=== PATIENT | female | born 1965 | race African-American/Black ===

== ENCOUNTER 2019-05-13 15:35 | Emergency (ER) | payer MEDICARE, OTHER ==
--- NOTE | 2019-05-13 16:59 | RAD ---
EXAM DESCRIPTION: Chest, x-ray 2 Views CLINICAL HISTORY: vomiting with chest pain COMPARISON: None FINDINGS: Cardiac silhouette is within normal limits. Bibasilar parenchymal opacities could be secondary to atelectasis, infectious process cannot be excluded. Recommend follow-up. There is no acute osseous process visualized. Apices are obscured by superimposed patient's mandible. IMPRESSION: Bibasilar parenchymal opacities could be secondary to atelectasis, infectious process cannot be excluded. Recommend follow-up. Electronically signed by: Rubén Small MD 05/13/2019 4:58 PM CDT
--- NOTE | 2019-05-13 17:00 | RAD ---
EXAM: XR Abdomen, 2 Views CLINICAL HISTORY: The patient is 53 years old and is Female; vomiting with chest pain TECHNIQUE: Frontal view of the abdomen/pelvis with upright view of the abdomen. COMPARISON: No relevant prior studies available. FINDINGS: LOWER THORAX: Mild bibasilar opacities. INTRAPERITONEAL SPACE: No obvious free air. GASTROINTESTINAL TRACT: No significant bowel dilatation visualized. No obvious obstruction. ORGANS: Surgical clips visualized projecting over the right upper quadrant, likely related to prior cholecystectomy. BONES/JOINTS: No acute osseous findings. IMPRESSION: No acute findings visualized in the abdomen. Electronically signed by: Emily Christina MD 05/13/2019 4:58 PM CDT
[2019-05-13] MEDS: MORPHINE SULFATE INJ 10 MG/ML VIAL IV ONE (18:30)
--- NOTE | 2019-05-13 20:14 | ED.PDOC ---
History of Present Illness - General Chief Complaint: Cardiovascular Problem Stated Complaint: chest pain radiating to left jaw, SOB Time Seen by Provider: 05/13/19 15:37 Source: patient Exam Limitations: no limitations - History of Present Illness Initial Comments: the patient is a 53-year-old female presenting to the emergency room secondary to chest pain starting earlier this morning. The patient reports that she does have a cardiac history but is never had a heart attack and does not have any stents. She reports that she does have a prescription for nitroglycerin and took some nitroglycerin. This did not seem to help. She reports that the episode was started by actually 2 episodes of vomiting. She subsequently had substernal chest discomfort since that time. She is not nauseated now. No fevers. No syncope or near syncope. No palpitations. Timing/Duration: other - about 7 hours prior to arrival Severity: mild Worsening Factors: nothing Associated Symptoms: chest pain, nausea/vomiting Allergies/Adverse Reactions: Allergies Amoxicillin Allergy (Verified 05/13/19 15:56) Fentanyl and Related Allergy (Verified 05/13/19 15:56) Hydrocodone Allergy (Verified 05/13/19 15:56) Ibuprofen Allergy (Verified 05/13/19 15:56) Ketorolac Tromethamine [From Toradol] Allergy (Verified 05/13/19 15:56) Naproxen [From Naprosyn] Allergy (Verified 05/13/19 15:56) Penicillins Allergy (Verified 05/13/19 15:56) Tramadol Allergy (Verified 05/13/19 15:56) Home Medications: Ambulatory Orders Lisinopril & Hydrochlorothiazi [Zestoretic 20-12.5 mg] 1 tab PO DAILY 05/13/19 Nitroglycerin [Nitrostat] 0.4 mg SL PRN PRN 05/13/19 Omeprazole 40 mg PO DAILY #14 cap 05/13/19 Ondansetron Odt [Zofran ODT] 4 mg PO Q8HR PRN #5 tab 05/13/19 Sucralfate Tab [Carafate Tab] 1 gm PO QID #60 tab 05/13/19 Review of Systems - Review of Systems Constitutional: States: no symptoms reported EENTM: States: no symptoms reported Respiratory: States: no symptoms reported Cardiology: States: chest pain Gastrointestinal/Abdominal: States: no symptoms reported Genitourinary: States: no symptoms reported Musculoskeletal: States: no symptoms reported Skin: States: no symptoms reported Neurological: States: no symptoms reported Endocrine: States: no symptoms reported All other Systems: No Change from Baseline Past Medical History (General) - Patient Medical History Hx Stroke: No Hx Asthma: Yes Hx of COPD: No Hx Cardiac Disorders: Yes Hx Hypertension: Yes Hx Diabetes: No Hx Gastroesophageal Reflux: No Hx Renal Disease: No Hx Cancer: No Surgical History: cholecystectomy - Vaccination History Hx Tetanus, Diphtheria Vaccination: Yes Hx Influenza Vaccination: Yes - Social History Hx Tobacco Use: Yes Hx Alcohol Use: No Hx Substance Use: No Hx Substance Use Treatment: No Hx Depression: No - Female History Patient is a Female of Child Bearing Age (10 -59 yrs old): Yes Patient : Yes - Menopause Family Medical History - Family History Mother Living Status: Hx Family Hypertension: Yes Hx Cardiac Disease: Yes Hx Family Diabetes: Yes Physical Exam - Physical Exam General Appearance: Alert, Comfortable, No apparent distress Eye Exam: bilateral normal Ears, Nose, Throat: hearing grossly normal, normal ENT inspection Neck: full range of motion, supple Respiratory: lungs clear, normal breath sounds, no respiratory distress, no accessory muscle use Cardiovascular/Chest: normal peripheral pulses, regular rate, rhythm, no edema Peripheral Pulses: radial,right: 2+, radial,left: 2+ Gastrointestinal/Abdominal: non tender, soft Rectal Exam: deferred Back Exam: no CVA tenderness, no vertebral tenderness Extremity: non-tender, normal inspection, no pedal edema, normal capillary refill Neurologic: enrobing machine corder II-XII nml as tested, alert, normal mood/affect, oriented x 3 Skin Exam: normal color Comments: Vital Signs - 24 hr 05/13/19 05/13/19 15:35 15:45 Temperature 97.7 F Pulse Rate [ 93 H 93 H Monitor] Respiratory 18 18 Rate Blood Pressure 122/65 [L brachial] O2 Sat by Pulse 100 Oximetry Progress - Progress Progress: 05/13/19 20:14 the patient's 53-year-old Afghan female resented to the emergency room secondary to chest pain that occurred after vomiting. 2 sets of cardiac enzymes are negative, EKG and x-ray are reassuring. The patient is going to be treated for esophagitis with Carafate and omeprazole and she will also be written for some Zofran for as needed use for any nausea or vomiting. She needs to maintain a bland diet and keep herself well hydrated. ER warnings were given. She does need to obtain a primary care doctor. - Results/Orders Results/Orders: Laboratory Tests 05/13/19 05/13/19 05/13/19 16:10 16:10 16:10 WBC 8.1 RBC 4.65 Hgb 11.9 L Hct 36.3 MCV 78.2 L MCH 25.5 L MCHC 32.7 L RDW 15.0 H Plt Count 251 MPV 8.5 Absolute Neuts (auto) 4.30 Absolute Lymphs (auto) 3.00 Absolute Monos (auto) 0.50 Absolute Eos (auto) 0.20 Absolute Basos (auto) 0.10 Neutrophils % 53.0 Lymphocytes % 37.2 Monocytes % 6.2 Eosinophils % 2.7 Basophils % 0.9 PT 9.9 INR 0.99 PTT (SP) 26.5 Sodium 140 Potassium 3.5 L Chloride 105 Carbon Dioxide 22 Anion Gap 16.5 BUN 16 Creatinine 1.08 BUN/Creatinine Ratio 14.8 Random Glucose 114 H Serum Osmolality 281.4 Calcium 9.7 Magnesium Total Bilirubin 0.3 AST 18 ALT 18 Alkaline Phosphatase 91 Creatine Kinase 78 CK-MB (CK-2) 0.7 CK-MB (CK-2) % Not Reportable Troponin I < 0.02 B-Natriuretic Peptide 87.3 Serum Total Protein 7.4 Albumin 3.8 Globulin 3.6 H Albumin/Globulin Ratio 1.1 Amylase 45 Lipase TSH Serum HCG, Qual Urine Color Urine Appearance Urine pH Ur Specific Mylo Urine Protein Urine Glucose (UA) Urine Ketones Urine Blood Urine Nitrite Urine Bilirubin Urine Urobilinogen Ur Leukocyte Esterase Urine RBC Urine WBC Ur Epithelial Cells Amorphous Sediment Urine Bacteria 05/13/19 05/13/19 05/13/19 16:10 16:30 17:09 WBC RBC Hgb Hct MCV MCH MCHC RDW Plt Count MPV Absolute Neuts (auto) Absolute Lymphs (auto) Absolute Monos (auto) Absolute Eos (auto) Absolute Basos (auto) Neutrophils % Lymphocytes % Monocytes % Eosinophils % Basophils % PT INR PTT (SP) Sodium Potassium Chloride Carbon Dioxide Anion Gap BUN Creatinine BUN/Creatinine Ratio Random Glucose Serum Osmolality Calcium Magnesium 2.0 Total Bilirubin AST ALT Alkaline Phosphatase Creatine Kinase CK-MB (CK-2) CK-MB (CK-2) % Troponin I B-Natriuretic Peptide Serum Total Protein Albumin Globulin Albumin/Globulin Ratio Amylase Lipase 34 TSH 0.16 L Serum HCG, Qual Negative Urine Color Yellow Urine Appearance Clear Urine pH 7.0 Ur Specific Mylo 1.020 Urine Protein Negative Urine Glucose (UA) Negative Urine Ketones Negative Urine Blood Negative Urine Nitrite Negative Urine Bilirubin Negative Urine Urobilinogen 0.2 Ur Leukocyte Esterase Negative Urine RBC 0-1 Urine WBC 0-1 Ur Epithelial Cells 5-10 Amorphous Sediment 1+ Urine Bacteria Rare 05/13/19 19:30 WBC RBC Hgb Hct MCV MCH MCHC RDW Plt Count MPV Absolute Neuts (auto) Absolute Lymphs (auto) Absolute Monos (auto) Absolute Eos (auto) Absolute Basos (auto) Neutrophils % Lymphocytes % Monocytes % Eosinophils % Basophils % PT INR PTT (SP) Sodium Potassium Chloride Carbon Dioxide Anion Gap BUN Creatinine BUN/Creatinine Ratio Random Glucose Serum Osmolality Calcium Magnesium Total Bilirubin AST ALT Alkaline Phosphatase Creatine Kinase 75 CK-MB (CK-2) 0.6 CK-MB (CK-2) % Not Reportable Troponin I < 0.02 B-Natriuretic Peptide Serum Total Protein Albumin Globulin Albumin/Globulin Ratio Amylase Lipase TSH Serum HCG, Qual Urine Color Urine Appearance Urine pH Ur Specific Mylo Urine Protein Urine Glucose (UA) Urine Ketones Urine Blood Urine Nitrite Urine Bilirubin Urine Urobilinogen Ur Leukocyte Esterase Urine RBC Urine WBC Ur Epithelial Cells Amorphous Sediment Urine Bacteria EKG shows normal sinus rhythm at [address] bpm[address] Normal axis. No ST segment or T-wave changes indicative of acute ischemia. She does have poor R-wave progression. No previous EKGs to compare to. Borderline QT interval. chest x-ray is most consistent with bibasilar atelectasis. Departure - Departure Clinical Impression: Esophagitis Disposition: Discharge to Home or Self Care Condition: Fair Departure Forms: ED Discharge - Pt. Copy, Patient Portal Self Enrollment Instructions: Acid Reflux (Gastroesophageal Reflux Disease), Adult (DC) Diet: bland diet Activity: increase activity as tolerated Referrals: UNKNOWN,PHYSICIAN [Primary Care Provider] - 1-5 Days Prescriptions: Ondansetron Odt [Zofran ODT] 4 mg PO Q8HR PRN #5 tab PRN Reason: Nausea--Moderate Omeprazole 40 mg PO DAILY #14 cap Sucralfate Tab [Carafate Tab] 1 gm PO QID #60 tab Home Medications: Ambulatory Orders Lisinopril & Hydrochlorothiazi [Zestoretic 20-12.5 mg] 1 tab PO DAILY 05/13/19 Nitroglycerin [Nitrostat] 0.4 mg SL PRN PRN 05/13/19 Omeprazole 40 mg PO DAILY #14 cap 05/13/19 Ondansetron Odt [Zofran ODT] 4 mg PO Q8HR PRN #5 tab 05/13/19 Sucralfate Tab [Carafate Tab] 1 gm PO QID #60 tab 05/13/19 Additional Instructions: the patient's 53-year-old Afghan female resented to the emergency room secondary to chest pain that occurred after vomiting. 2 sets of cardiac enzymes are negative, EKG and x-ray are reassuring. The patient is going to be treated for esophagitis with Carafate and omeprazole and she will also be written for s ome Zofran for as needed use for any nausea or vomiting. She needs to maintain a bland diet and keep herself well hydrated. ER warnings were given. She does need to obtain a primary care doctor.
[2019-05-13] MEDS: ACETAMINOPHEN-CAFF-BUTALBITAL 1 EA TAB PO ONE (20:21)
[2019-05-13 20:44] VITALS: BP 154/95; TEMP 97.4; O2SAT 99
== END 2019-05-13 20:44 | disposition home or self-care (01) ==
LOC: ER 15:35
DX: K20.9 Esophagitis, unspecified (principal); R07.2 Precordial pain; R11.2 Nausea with vomiting, unspecified; J45.909 Unspecified asthma, uncomplicated; I51.9 Heart disease, unspecified; I10 Essential (primary) hypertension; Z87.891 Personal history of nicotine dependence; Z79.899 Other long term (current) drug therapy; Z88.5 Allergy status to narcotic agent; Z88.0 Allergy status to penicillin; Z88.6 Allergy status to analgesic agent
CPT/HCPCS: 36415; 71046; 74019; 80053; 81001; 82150; 82550; 82553; 83690; 83735; 83880; 84443; 84484; 84703; 85025; 85610; 85730; 93005; J2270

== ENCOUNTER 2019-05-27 14:35 | Emergency (ER) | payer MEDICARE, MEDICAID ==
[2019-05-27] MEDS ORDERED: MORPHINE SULFATE INJ 10 MG/ML VIAL IM ONE (15:21)
--- NOTE | 2019-05-27 15:34 | ED.PDOC ---
History of Present Illness - General Chief Complaint: General Stated Complaint: body aches,back pain Time Seen by Provider: 05/27/19 14:45 - History of Present Illness Initial Comments: c/o whole body aches since 11 am this morning after helping a person to lift up from the ground , no fever or chills or sore throat Severity: moderate Improving Factors: nothing Worsening Factors: nothing Associated Symptoms: denies symptoms Allergies/Adverse Reactions: Allergies Amoxicillin Allergy (Verified 05/13/19 15:56) Fentanyl and Related Allergy (Verified 05/13/19 15:56) Hydrocodone Allergy (Verified 05/13/19 15:56) Ibuprofen Allergy (Verified 05/13/19 15:56) Ketorolac Tromethamine [From Toradol] Allergy (Verified 05/13/19 15:56) Naproxen [From Naprosyn] Allergy (Verified 05/13/19 15:56) Penicillins Allergy (Verified 05/13/19 15:56) Tramadol Allergy (Verified 05/13/19 15:56) Home Medications: Ambulatory Orders Lisinopril & Hydrochlorothiazi [Zestoretic 20-12.5 mg] 1 tab PO DAILY 05/13/19 Nitroglycerin [Nitrostat] 0.4 mg SL PRN PRN 05/13/19 Omeprazole 40 mg PO DAILY #14 cap 05/13/19 Ondansetron Odt [Zofran ODT] 4 mg PO Q8HR PRN #5 tab 05/13/19 Sucralfate Tab [Carafate Tab] 1 gm PO QID #60 tab 05/13/19 Review of Systems - Review of Systems Constitutional: States: no symptoms reported EENTM: States: no symptoms reported Respiratory: States: no symptoms reported Cardiology: States: no symptoms reported Gastrointestinal/Abdominal: States: no symptoms reported Genitourinary: States: no symptoms reported Musculoskeletal: States: see HPI Skin: States: no symptoms reported Neurological: States: no symptoms reported Hematologic/Lymphatic: States: no symptoms reported All other Systems: Reviewed and Negative Past Medical History (General) - Patient Medical History Hx Stroke: No Hx Asthma: Yes Hx of COPD: No Hx Cardiac Disorders: Yes Hx Congestive Heart Failure: No Hx Hypertension: Yes Hx Diabetes: No Hx Gastroesophageal Reflux: No Hx Renal Disease: No Hx Cancer: No Surgical History: cholecystectomy - Vaccination History Hx Tetanus, Diphtheria Vaccination: Yes Hx Influenza Vaccination: Yes Hx Pneumococcal Vaccination: Yes - Social History Hx Tobacco Use: Yes Hx Alcohol Use: No Hx Substance Use: No Hx Substance Use Treatment: No Hx Depression: No - Female History Patient : Yes - Menopause Family Medical History - Family History Mother Living Status: Hx Family Hypertension: Yes Hx Cardiac Disease: Yes Hx Family Diabetes: Yes Physical Exam - Physical Exam General Appearance: Alert, Comfortable Eye Exam: bilateral normal Ears, Nose, Throat: hearing grossly normal, normal ENT inspection, normal pharynx Neck: non-tender, full range of motion, supple, normal inspection Respiratory: chest non-tender, lungs clear, normal breath sounds, no respiratory distress, no accessory muscle use Cardiovascular/Chest: regular rate, rhythm, no edema, no gallop, no JVD, no murmur Gastrointestinal/Abdominal: non tender, soft, no organomegaly Back Exam: normal inspection, no CVA tenderness, no vertebral tenderness Extremity: normal range of motion, non-tender, normal inspection Neurologic: bulb brander II-XII nml as tested, no motor/sensory deficits, alert, normal mood/affect, oriented x 3 Skin Exam: normal color Lymphatic: no adenopathy Departure - Departure Clinical Impression: Generalized pain Time of Disposition: 15:36 Disposition: Discharge to Home or Self Care Condition: Good Departure Forms: ED Discharge - Pt. Copy, Patient Portal Self Enrollment Activity: increase activity as tolerated, walking as tolerated Home Medications: Ambulatory Orders Lisinopril & Hydrochlorothiazi [Zestoretic 20-12.5 mg] 1 tab PO DAILY 05/13/19 Nitroglycerin [Nitrostat] 0.4 mg SL PRN PRN 05/13/19 Omeprazole 40 mg PO DAILY #14 cap 05/13/19 Ondansetron Odt [Zofran ODT] 4 mg PO Q8HR PRN #5 tab 05/13/19 Sucralfate Tab [Carafate Tab] 1 gm PO QID #60 tab 05/13/19
[2019-05-27] MEDS ORDERED: diphenhydrAMINE HCL 50 MG/ML VIAL IM ONE (15:37)
[2019-05-27 16:04] VITALS: BP 151/94; TEMP 97.4; O2SAT 98
== END 2019-05-27 16:04 | disposition home or self-care (01) ==
LOC: ER 14:35
DX: R52 Pain, unspecified (principal); J45.909 Unspecified asthma, uncomplicated; I51.9 Heart disease, unspecified; I10 Essential (primary) hypertension; Z79.899 Other long term (current) drug therapy; Z87.891 Personal history of nicotine dependence; Z88.1 Allergy status to other antibiotic agents; Z88.8 Allergy status to other drugs, medicaments and biological substances; Z88.5 Allergy status to narcotic agent; Z88.6 Allergy status to analgesic agent; Z88.0 Allergy status to penicillin
CPT/HCPCS: J1200; J2270

== ENCOUNTER 2019-06-10 11:52 | Emergency (ER) | payer MEDICARE, MEDICAID ==
--- NOTE | 2019-06-10 12:18 | ED.PDOC ---
History of Present Illness - General Chief Complaint: Respiratory Problem Stated Complaint: cough,body aches,cold sx Time Seen by Provider: 06/10/19 12:15 - History of Present Illness Comments: c/o having yellow productive cough with body aches since 2 days , associated with subjective fever , no sob or wheezing or nasal congestion or earache Cough Quality/Degree: mild, sputum Possible Cause: no prior episodes Improving Factors: nothing Worsening Factors: nothing Associated Symptoms: cough Allergies/Adverse Reactions: Allergies Amoxicillin Allergy (Verified 05/13/19 15:56) Fentanyl and Related Allergy (Verified 05/13/19 15:56) Hydrocodone Allergy (Verified 05/13/19 15:56) Ibuprofen Allergy (Verified 05/13/19 15:56) Ketorolac Tromethamine [From Toradol] Allergy (Verified 05/13/19 15:56) Naproxen [From Naprosyn] Allergy (Verified 05/13/19 15:56) Penicillins Allergy (Verified 05/13/19 15:56) Tramadol Allergy (Verified 05/13/19 15:56) Home Medications: Ambulatory Orders Lisinopril & Hydrochlorothiazi [Zestoretic 20-12.5 mg] 1 tab PO DAILY 05/13/19 Nitroglycerin [Nitrostat] 0.4 mg SL PRN PRN 05/13/19 Omeprazole 40 mg PO DAILY #14 cap 05/13/19 Ondansetron Odt [Zofran ODT] 4 mg PO Q8HR PRN #5 tab 05/13/19 Sucralfate Tab [Carafate Tab] 1 gm PO QID #60 tab 05/13/19 Review of Systems - Review of Systems Constitutional: States: see HPI EENTM: States: see HPI Respiratory: States: no symptoms reported Cardiology: States: no symptoms reported Gastrointestinal/Abdominal: States: no symptoms reported Genitourinary: States: no symptoms reported Musculoskeletal: States: no symptoms reported Skin: States: no symptoms reported Neurological: States: no symptoms reported Endocrine: States: no symptoms reported Hematologic/Lymphatic: States: no symptoms reported All other Systems: Reviewed and Negative Past Medical History (General) - Patient Medical History Hx Stroke: No Hx Asthma: Yes Hx of COPD: No Hx Cardiac Disorders: Yes Hx Congestive Heart Failure: No Hx Hypertension: Yes Hx Diabetes: No Hx Gastroesophageal Reflux: No Hx Renal Disease: No Hx Cancer: No Surgical History: cholecystectomy - Vaccination History Hx Tetanus, Diphtheria Vaccination: Yes Hx Influenza Vaccination: Yes Hx Pneumococcal Vaccination: Yes - Social History Hx Tobacco Use: Yes Hx Alcohol Use: No Hx Substance Use: No Hx Substance Use Treatment: No Hx Depression: No - Female History Patient : Yes - Menopause Family Medical History - Family History Mother Living Status: Hx Family Hypertension: Yes Hx Cardiac Disease: Yes Hx Family Diabetes: Yes Physical Exam - Physical Exam General Appearance: Alert, Comfortable Eye Exam: bilateral normal ENT Exam: normal ENT inspection, hearing grossly normal Neck: non-tender, full range of motion, supple, normal inspection Respiratory: chest non-tender, lungs clear, normal breath sounds, no respiratory distress, no accessory muscle use Cardiovascular/Chest: regular rate, rhythm, no edema, no gallop, no JVD, no murmur Extremity: normal range of motion, non-tender, normal inspection, no pedal edema Neurologic: no motor/sensory deficits, alert, normal mood/affect, oriented x 3 Skin Exam: normal color Lymphatic: no adenopathy Departure - Departure Clinical Impression: Viral URI Time of Disposition: 13:40 Disposition: Discharge to Home or Self Care Condition: Good Departure Forms: ED Discharge - Pt. Copy, Patient Portal Self Enrollment Diet: resume usual diet Activity: increase activity as tolerated, walking as tolerated Home Medications: Ambulatory Orders Lisinopril & Hydrochlorothiazi [Zestoretic 20-12.5 mg] 1 tab PO DAILY 05/13/19 Nitroglycerin [Nitrostat] 0.4 mg SL PRN PRN 05/13/19 Omeprazole 40 mg PO DAILY #14 cap 05/13/19 Ondansetron Odt [Zofran ODT] 4 mg PO Q8HR PRN #5 tab 05/13/19 Sucralfate Tab [Carafate Tab] 1 gm PO QID #60 tab 05/13/19
[2019-06-10] MEDS ORDERED: MORPHINE SULFATE INJ 10 MG/ML VIAL IM ONE (13:44)
[2019-06-10 14:17] VITALS: BP 177/102; TEMP 98.1; O2SAT 100
== END 2019-06-10 14:32 | disposition home or self-care (01) ==
LOC: ER 11:52
DX: J06.9 Acute upper respiratory infection, unspecified (principal); I10 Essential (primary) hypertension; J45.909 Unspecified asthma, uncomplicated; I51.9 Heart disease, unspecified; Z87.891 Personal history of nicotine dependence; Z79.899 Other long term (current) drug therapy; Z88.1 Allergy status to other antibiotic agents; Z88.5 Allergy status to narcotic agent; Z88.6 Allergy status to analgesic agent; Z88.0 Allergy status to penicillin
CPT/HCPCS: 87070; 87502; 87880; J2270

== ENCOUNTER 2019-06-13 15:35 | Emergency (ER) | payer MEDICARE, MEDICAID ==
--- NOTE | 2019-06-13 16:43 | RAD ---
EXAM DESCRIPTION: Chest,2 Views CLINICAL HISTORY: 54 years Female, cough COMPARISON: 13 May 2019 TECHNIQUE: PA/lateral FINDINGS: There is no cardiac or pulmonary abnormality. The lungs are clear. There is no effusion. IMPRESSION: 1. Normal two-view chest. Electronically signed by: Kyle Bower MD 06/13/2019 4:41 PM [facility] [email or web address]]
[2019-06-13] MEDS ORDERED: PROCHLORPERAZINE INJ 10 MG/2 ML VIAL ONE (17:12)
[2019-06-13] MEDS: PROCHLORPERAZINE INJ 10 MG/2 ML VIAL IM ONE (17:22)
--- NOTE | 2019-06-13 17:30 | ED.PDOC ---
History of Present Illness - General Chief Complaint: General Stated Complaint: cough, headache, body aches, worsened Time Seen by Provider: 06/13/19 16:54 Source: patient, RN notes reviewed, Vital Signs reviewed, old records Exam Limitations: no limitations - History of Present Illness Initial Comments: patient is a 54-year-old Africn female who appears oldemplaints of continued cough, headache anlized body aches and fatigue. They N she was seen here in tcy department and was dh a viral illness after flu swab. Patient says nothing is helping her pain or cough. She states the pain is worse with moveme shortness of breath and with deep inspiration.the pain is aching in nature and is moderate intensity.patient denies any fevers, chills nausea, vomiting,, chest pain, w eakness or dizziness. Timing/Duration: other - 3 days Severity: moderate Improving Factors: nothing Worsening Factors: movement Associated Symptoms: cough, headaches, shortness of breath Allergies/Adverse Reactions: Allergies Amoxicillin Allergy (Verified 05/13/19 15:56) Fentanyl and Related Allergy (Verified 05/13/19 15:56) Hydrocodone Allergy (Verified 05/13/19 15:56) Ibuprofen Allergy (Verified 05/13/19 15:56) Ketorolac Tromethamine [From Toradol] Allergy (Verified 05/13/19 15:56) Naproxen [From Naprosyn] Allergy (Verified 05/13/19 15:56) Penicillins Allergy (Verified 05/13/19 15:56) Tramadol Allergy (Verified 05/13/19 15:56) Home Medications: Ambulatory Orders Lisinopril & Hydrochlorothiazi [Zestoretic 20-12.5 mg] 1 tab PO DAILY 05/13/19 Nitroglycerin [Nitrostat] 0.4 mg SL PRN PRN 05/13/19 Omeprazole 40 mg PO DAILY #14 cap 05/13/19 Ondansetron Odt [Zofran ODT] 4 mg PO Q8HR PRN #5 tab 05/13/19 Sucralfate Tab [Carafate Tab] 1 gm PO QID #60 tab 05/13/19 Prednisone 50 mg PO DAILY #5 tab 06/13/19 Review of Systems - Review of Systems Constitutional: States: see HPI EENTM: States: see HPI Respiratory: States: see HPI, cough, short of breath. Denies: stridor, wheezing Cardiology: States: no symptoms reported. Denies: chest pain, palpitations, syncope Gastrointestinal/Abdominal: States: no symptoms reported. Denies: abdominal pain, constipation, diarrhea, nausea Genitourinary: States: no symptoms reported. Denies: dysuria, frequency Musculoskeletal: States: see HPI, joint pain, muscle pain. Denies: back pain, gout Skin: States: no symptoms reported Neurological: States: no symptoms reported Endocrine: States: no symptoms reported Hematologic/Lymphatic: States: no symptoms reported All other Systems: Reviewed and Negative Past Medical History (General) - Patient Medical History Hx Stroke: No Hx Asthma: Yes Hx of COPD: No Hx Cardiac Disorders: Yes Hx Congestive Heart Failure: No Hx Hypertension: Yes Hx Diabetes: No Hx Gastroesophageal Reflux: No Hx Renal Disease: No Hx Cancer: No Surgical History: no surgical history - Vaccination History Hx Tetanus, Diphtheria Vaccination: Yes Hx Influenza Vaccination: Yes Hx Pneumococcal Vaccination: Yes - Social History Hx Tobacco Use: Yes Hx Alcohol Use: No Hx Substance Use: No Hx Substance Use Treatment: No Hx Depression: No - Female History Patient is a Female of Child Bearing Age (10 -59 yrs old): No Patient : Yes - Menopause Family Medical History - Family History Mother Living Status: Hx Family Hypertension: Yes Hx Cardiac Disease: Yes Hx Family Diabetes: Yes Physical Exam - Physical Exam General Appearance: Alert, Anxious, Well Developed, Well Hydrated, Well Nourishe d, Other - patient smells of cigarette smoke Eye Exam: bilateral normal Ears, Nose, Throat: hearing grossly normal, normal ENT inspection, normal phar ynx Neck: non-tender, full range of motion, supple, normal inspection Respiratory: chest non-tender, lungs clear, normal breath sounds, no respiratory distress, no accessory muscle use Cardiovascular/Chest: normal peripheral pulses, regular rate, rhythm, no edema, no murmur Peripheral Pulses: radial,right: 2+, radial,left: 2+ Gastrointestinal/Abdominal: normal bowel sounds, non tender, soft, no organomegaly, no pulsatile mass Back Exam: normal inspection, no CVA tenderness, no vertebral tenderness Extremity: normal range of motion, non-tender, normal inspection, no pedal edema, no calf tenderness 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 06/13/19 17:33 EXAM DESCRIPTION: Chest,2 Views CLINICAL HISTORY: 54 years Female, cough COMPARISON: 13 May 2019 TECHNIQUE: PA/lateral FINDINGS: There is no cardiac or pulmonary abnormality. The lungs are clear. There is no effusion. IMPRESSION: 1. Normal two-view chest. Electronically signed by: Kyle Bower MD 06/13/2019 4:41 PM 06/13/19 17:35 patient is improved after Compazine Plan on discharge home with prescription for Compazine for her headache cough medicine and steroids for her cough. I discussed the plan of care with the patient and she voices underanding and agrees with the plan of care. Jarrell Waller M.D. #[id number] 06/13/19 17:44 patient is now stating that the Compazine has made her headache worsie and is requesting a shot of morphine just like she got on Tuesday. I explained to the patient that morphine is not a necessary medication and I would not offering any. I explained to her I would not offer her narcotic pain medicines at this time. I recommended that shoing headaches thow up with her Pion and treatment.ow discharged mario Departure - Departure Clinical Impression: Viral upper respiratory tract infection with cough Headache Qualifiers: Headache type: unspecified Headache chronicity pattern: acute headache Intractability: not intractable Qualified Code(s): R51 - Headache Time of Disposition: 17:38 Disposition: Discharge to Home or Self Care Condition: Good Departure Forms: ED Discharge - Pt. Copy, Patient Portal Self Enrollment Instructions: Viral Upper Respiratory Infection, Adult (DC), Headache, Adult (DC) Prescriptions: Prednisone 50 mg PO DAILY #5 tab Home Medications: Ambulatory Orders Lisinopril & Hydrochlorothiazi [Zestoretic 20-12.5 mg] 1 tab PO DAILY 05/13/19 Nitroglycerin [Nitrostat] 0.4 mg SL PRN PRN 05/13/19 Omeprazole 40 mg PO DAILY #14 cap 05/13/19 Ondansetron Odt [Zofran ODT] 4 mg PO Q8HR PRN #5 tab 10/20/19 Sucralfate Tab [Carafate Tab] 1 gm PO QID #60 tab 05/13/19 Prednisone 50 mg PO DAILY #5 tab 06/13/19
[2019-06-13 18:09] VITALS: BP 122/93; TEMP 97.6; O2SAT 98
== END 2019-06-13 18:10 | disposition home or self-care (01) ==
LOC: ER 15:35
DX: J06.9 Acute upper respiratory infection, unspecified (principal); R51 Headache; J45.909 Unspecified asthma, uncomplicated; I10 Essential (primary) hypertension; I51.9 Heart disease, unspecified; Z87.891 Personal history of nicotine dependence; Z79.899 Other long term (current) drug therapy; Z88.1 Allergy status to other antibiotic agents; Z88.5 Allergy status to narcotic agent; Z88.6 Allergy status to analgesic agent; Z88.0 Allergy status to penicillin
CPT/HCPCS: 71046; J0780

== ENCOUNTER 2019-06-24 15:20 | Emergency (ER) | payer MEDICARE, MEDICAID | END 2019-06-24 16:06 | disposition left against medical advice (07) | LOC: ER 15:20 | DX: R52 Pain, unspecified (principal); Z53.21 Procedure and treatment not carried out due to patient leaving prior to being seen by health care provider ==

== ENCOUNTER 2019-07-03 14:02 | Emergency (ER) | payer MEDICARE, MEDICAID ==
[2019-07-03 14:15] VITALS: TEMP 98.9; O2SAT 100
[2019-07-03] MEDS ORDERED: CLINDAMYCIN PHOSPHATE 150 MG/ML VIAL IM ONE (14:38)
--- NOTE | 2019-07-03 14:43 | ED.PDOC ---
History of Present Illness - General Chief Complaint: Dental/Mouth Stated Complaint: upper right jaw pain Time Seen by Provider: 07/03/19 14:30 Source: patient, RN notes reviewed, Vital Signs reviewed, old records - her ER visits - History of Present Illness Initial Comments: patient is a 54-year-old black female who presents with complaints of right upper mandible pain. She has no teeth and has been unable to wear her dentures because they don't fit well.starting last night, patient started having worsening pain and swelling over the site of tooth #6. He does not have any teeth in her upper jaw. Patient denies fever, headache, nausea, vomiting, diarrhea, chest pain or shortness of breath. Timing/Duration: yesterday Severity: moderate EENT Location: mouth - right upper mandible Prearrival Treatment: no prearrival treatment Improving Factors: nothing Worsening Factors: eating, other - palpation Associated Symptoms: facial pain/swelling - facial pain no swelling, other - chills Allergies/Adverse Reactions: Allergies Acetaminophen Allergy (Severe, Verified 07/03/19 14:09) Anaphylaxis Amoxicillin Allergy (Severe, Verified 07/03/19 14:09) Anaphylaxis Hydrocodone Allergy (Severe, Verified 07/03/19 14:09) Anaphylaxis Ibuprofen Allergy (Severe, Verified 07/03/19 14:09) Anaphylaxis Ketorolac Tromethamine [From Toradol] Allergy (Severe, Verified 07/03/19 14:09) Anaphylaxis Naproxen [From Naprosyn] Allergy (Severe, Verified 07/03/19 14:09) Anaphylaxis Penicillins Allergy (Severe, Verified 07/03/19 14:09) Anaphylaxis Tramadol Allergy (Severe, Verified 07/03/19 14:09) Anaphylaxis Home Medications: Ambulatory Orders Lisinopril & Hydrochlorothiazi [Zestoretic 20-12.5 mg] 1 tab PO DAILY 05/13/19 Nitroglycerin [Nitrostat] 0.4 mg SL PRN PRN 05/13/19 Clindamycin HCl [Clindamycin Hydrochloride] 300 mg PO TID #30 cap 07/03/19 Review of Systems - Review of Systems Constitutional: States: see HPI, chills EENTM: States: see HPI, mouth pain, mouth swelling Respiratory: States: no symptoms reported Cardiology: States: no symptoms reported Gastrointestinal/Abdominal: States: no symptoms reported Genitourinary: States: no symptoms reported Musculoskeletal: States: no symptoms reported Skin: States: no symptoms reported Neurological: States: no symptoms reported Endocrine: States: no symptoms reported Hematologic/Lymphatic: States: no symptoms reported All other Systems: Reviewed and Negative Past Medical History (General) - Patient Medical History Hx Stroke: No Hx Asthma: Yes Hx of COPD: No Hx Cardiac Disorders: Yes Hx Congestive Heart Failure: No Hx Hypertension: Yes Hx Diabetes: No Hx Gastroesophageal Reflux: No Hx Renal Disease: No Hx Cancer: No Surgical History: cholecystectomy - Vaccination History Hx Tetanus, Diphtheria Vaccination: Yes Hx Influenza Vaccination: Yes Hx Pneumococcal Vaccination: Yes - Social History Hx Tobacco Use: Yes Hx Alcohol Use: No Hx Substance Use: No Hx Substance Use Treatment: No Hx Depression: No - Female History Patient : Yes - Menopause Family Medical History - Family History Mother Living Status: Hx Family Hypertension: Yes Hx Cardiac Disease: Yes Hx Family Diabetes: Yes Physical Exam - Physical Exam General Appearance: Alert, Comfortable, Well Developed, Well Groomed, Well Hydrated, Well Nourished Eye Exam: bilateral normal Ear Exam: bilateral ear: auricle normal Nasal Exam: normal inspection Throat Exam: dental tenderness, other - patient has swelling over the buccal tissue at the site of tooth #6. There is no fluctuance but it is tender to palpation. Neck: non-tender, full range of motion, supple, normal inspection, trachea midline, other - no submandibular lymphadenopathy. 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 07/03/19 14:45 patient was given clindamycin 600 mg IM and discharged home with prescription for clindamycin. Patient did request narcotic medications here and I deferred as I do not believe they're indicated at this time. Jarrell Waller M.D. #[id number] Departure - Departure Clinical Impression: Acute pain of mouth, Cellulitis of buccal space of mouth Time of Disposition: 14:47 Disposition: Discharge to Home or Self Care Condition: Good Departure Forms: ED Discharge - Pt. Copy, Patient Portal Self Enrollment Instructions: DI for Mouth Pain, DI for Dental Pain Prescriptions: Clindamycin HCl [Clindamycin Hydrochloride] 300 mg PO TID #30 cap Home Medications: Ambulatory Orders Lisinopril & Hydrochlorothiazi [Zestoretic 20-12.5 mg] 1 tab PO DAILY 05/13/19 Nitroglycerin [Nitrostat] 0.4 mg SL PRN PRN 05/13/19 Clindamycin HCl [Clindamycin Hydrochloride] 300 mg PO TID #30 cap 07/03/19 Additional Instructions: patient to follow-up with her dentist.
[2019-07-03 15:17] VITALS: BP 136/86
== END 2019-07-03 15:21 | disposition home or self-care (01) ==
LOC: ER 14:02
DX: K12.2 Cellulitis and abscess of mouth (principal); J45.909 Unspecified asthma, uncomplicated; I51.9 Heart disease, unspecified; I10 Essential (primary) hypertension; Z87.891 Personal history of nicotine dependence; Z79.899 Other long term (current) drug therapy; Z88.5 Allergy status to narcotic agent; Z88.0 Allergy status to penicillin; Z88.6 Allergy status to analgesic agent

== ENCOUNTER 2019-07-22 10:45 | Emergency (ER) | payer MEDICARE, MEDICAID ==
--- NOTE | 2019-07-22 11:12 | ED.PDOC ---
History of Present Illness - General Chief Complaint: Abdominal Pain Stated Complaint: RUQ pain x 3 days Time Seen by Provider: 07/22/19 11:04 - History of Present Illness Initial Comments: 54-year-old female well known to the ED staff from multiple visits, presents with 3 days of right-sided flank and abdominal pain. Still having normal bowel movements, no fevers, she does note nausea and vomiting, and is concerned about a kidney infection. Allergies/Adverse Reactions: Allergies Acetaminophen Allergy (Severe, Verified 07/03/19 14:09) Anaphylaxis Amoxicillin Allergy (Severe, Verified 07/03/19 14:09) Anaphylaxis Hydrocodone Allergy (Severe, Verified 07/03/19 14:09) Anaphylaxis Ibuprofen Allergy (Severe, Verified 07/03/19 14:09) Anaphylaxis Ketorolac Tromethamine [From Toradol] Allergy (Severe, Verified 07/03/19 14:09) Anaphylaxis Naproxen [From Naprosyn] Allergy (Severe, Verified 07/03/19 14:09) Anaphylaxis Penicillins Allergy (Severe, Verified 07/03/19 14:09) Anaphylaxis Tramadol Allergy (Severe, Verified 07/03/19 14:09) Anaphylaxis Home Medications: Ambulatory Orders Lisinopril & Hydrochlorothiazi [Zestoretic 20-12.5 mg] 1 tab PO DAILY 05/13/19 Nitroglycerin [Nitrostat] 0.4 mg SL PRN PRN 05/13/19 Clindamycin HCl [Clindamycin Hydrochloride] 300 mg PO TID #30 cap 07/03/19 Dicyclomine HCl [Bentyl] 20 mg PO Q8H PRN #15 tab 07/22/19 Docusate Sodium [Colace Cap] 100 mg PO BID PRN #20 cap 07/22/19 Polyethylene Glycol 3350 [Miralax] 17 gm PO DAILY 15 Days #238 bottle 07/22/19 Promethazine Tab [Phenergan Tablet] 25 mg PO Q6H PRN #12 tab 07/22/19 Review of Systems - Review of Systems Review of Systems: 07/22/19 13:48 General: Denies generalized weakness, fever, arthralgia/myalgia HEENT: Denies sore throat, rhinorrhea Cardiovascular: Denies chest pain, palpitations Respiratory: Denies SOB, cough Gastrointestinal: has abdominal pain, vomiting, no diarrhea : Denies dysuria, frequency Musculoskeletal: Denies extremity pain, extremity swelling Integument: Denies rash, itching Neuro: Denies focal weakness or numbness Psych: Denies depression, hallucinations. Past Medical History (General) - Patient Medical History Hx Stroke: No Hx Asthma: Yes Hx of COPD: No Hx Cardiac Disorders: Yes Hx Congestive Heart Failure: No Hx Hypertension: Yes Hx Diabetes: No Hx Gastroesophageal Reflux: No Hx Renal Disease: No Hx Cancer: No Surgical History: cholecystectomy, Hysterectomy - Vaccination History Hx Tetanus, Diphtheria Vaccination: Yes Hx Influenza Vaccination: Yes Hx Pneumococcal Vaccination: Yes - Social History Hx Tobacco Use: Yes Hx Alcohol Use: No Hx Substance Use: No Hx Substance Use Treatment: No Hx Depression: No - Female History Patient is a Female of Child Bearing Age (10 -59 yrs old): Yes Patient : No - Hyst Family Medical History - Family History Mother Living Status: Hx Family Hypertension: Yes Hx Cardiac Disease: Yes Hx Family Diabetes: Yes Physical Exam - Physical Exam Comments: General Appearance: Patient is awake and alert. Skin: Warm and dry. No diaphoresis. No rash or other lesions. Head: Normocephalic/atraumatic. Eyes: PERRL, lids, conjunctiva and sclera unremarkable. EOMI intact. ENT: No nasal discharge. Oropharynx. Without erythema, exudate, lesions. Moist mucous membranes. Neck: Supple. No LAD. No tenderness. No JVD noted. Respiratory: Normal rate and effort. Breath sounds clear bilaterally. Cardiovascular: Regular rate. Heart sounds normal. No murmur. GI: Abdomen soft, non-distended and non-tender. No rebound/guarding. Bowel sounds normal. Back: No tenderness Musculoskeletal: Extremities- Normal range of motion. No effusion, cyanosis, edema. Neurological: Alert. No facial palsy. Speech clear. Gag intact. No motor deficit, str symmetric. No sensory deficit. Progress - Progress Progress: 07/22/19 13:43 Vital Signs - 24 hr 07/22/19 07/22/19 10:50 10:54 Temperature 98.5 F Pulse Rate [ 78 78 Pulse ox] Respiratory 16 16 Rate Blood Pressure 168/97 [L brachial] O2 Sat by Pulse 98 Oximetry Laboratory Results Urine Color Yellow (Yellow) 07/22/19 11:05 Urine Appearance Clear (Clear) 07/22/19 11:05 Urine pH 6.0 (4.5-7.8) 07/22/19 11:05 Ur Specific [place] >= 1.030 (1.005-1.030) 07/22/19 11:05 Urine Protein 30 mg/dL 07/22/19 11:05 Urine Glucose (UA) Negative mg/dL (Negative) 07/22/19 11:05 Urine Ketones 15 mg/dL (NEGATIVE) H 07/22/19 11:05 Urine Blood Negative (Negative) 07/22/19 11:05 Urine Nitrite Negative 07/22/19 11:05 Urine Bilirubin Small (NEGATIVE) H 07/22/19 11:05 Urine Urobilinogen 0.2 mg/dL (0.2-1.0) 07/22/19 11:05 Ur Leukocyte Esterase Negative (Negative) 07/22/19 11:05 Urine RBC 0 /hpf 07/22/19 11:05 Urine WBC 0 /hpf 07/22/19 11:05 Ur Epithelial Cells 3-5 /hpf 07/22/19 11:05 Urine Bacteria 0 07/22/19 11:05 07/22/19 13:49 Patient feels better. VS, exam remain reassuring. Labs, imaging are without acute abnormality. I have discussed findings, diff dx, plan of care, need for follow-up, and reasons to return to the ED. Safety Stop (Diagnostic Time-Out): Tachycardia: No Diagnostic Studies: Reviewed Diagnostic Certainty: low, d/w patient Patient/family feels safe with discharge: Yes - EKG/XRAY/CT CT: abdomen, is w/out acute abnormality CT Ordered: Yes Departure - Departure Clinical Impression: Abdominal pain Time of Disposition: 13:45 Disposition: Discharge to Home or Self Care Condition: Good Departure Forms: ED Discharge - Pt. Copy, Patient Portal Self Enrollment Instructions: DI for Abdominal Pain-Adult Diet: resume usual diet Activity: walking as tolerated Prescriptions: Dicyclomine HCl [Bentyl] 20 mg PO Q8H PRN #15 tab PRN Reason: Pain Docusate Sodium [Colace Cap] 100 mg PO BID PRN #20 cap PRN Reason: Constipation Polyethylene Glycol 3350 [Miralax] 17 gm PO DAILY 15 Days #238 bottle Promethazine Tab [Phenergan Tablet] 25 mg PO Q6H PRN #12 tab PRN Reason: Nausea Home Medications: Ambulatory Orders Lisinopril & Hydrochlorothiazi [Zestoretic 20-12.5 mg] 1 tab PO DAILY 05/13/19 Nitroglycerin [Nitrostat] 0.4 mg SL PRN PRN 05/13/19 Clindamycin HCl [Clindamycin Hydrochloride] 300 mg PO TID #30 cap 07/03/19 Dicyclomine HCl [Bentyl] 20 mg PO Q8H PRN #15 tab 07/22/19 Docusate Sodium [Colace Cap] 100 mg PO BID PRN #20 cap 07/22/19 Polyethylene Glycol 3350 [Miralax] 17 gm PO DAILY 15 Days #238 bottle 07/22/19 Promethazine Tab [Phenergan Tablet] 25 mg PO Q6H PRN #12 tab 07/22/19 Comments: James Pereira MD Emergency Medicine #[id number]
[2019-07-22] MEDS ORDERED: DICYCLOMINE HCL INJ 20 MG/2 ML AMP IM ONE (12:47)
--- NOTE | 2019-07-22 13:16 | CT ---
EXAM: Abdoment/Pelvis w/o Contrast CLINICAL INDICATION: Left flank pain COMPARISON: There is no previous study for comparison. TECHNIQUE: The CT scan was done using contiguous axial 2.5 mm noncontrast sections through the abdomen and pelvis. This exam was performed according to our departmental dose-optimization program, which includes automated exposure control, adjustment of the mA and/or kV according to patient size and/or use of iterative reconstruction technique. FINDINGS: Visualized portions of the lung bases reveal a nodule along the right major fissure measuring 5.7 x 8.7 mm. Groundglass opacities are noted in the bilateral lower lobes which may be due to a nonspecific atelectasis, pneumonia is not excluded. Another micronodule is seen in the right middle lobe measuring 5.1 x 4.7 mm and another micronodule in the left lower lobe measures 6.0 x 4.7 mm. The gallbladder is surgically absent. The liver, spleen, adrenal glands, pancreas, and kidneys have a normal noncontrast CT appearance, except for a 1.1 cm simple cyst in the left kidney. There is no renal or ureteral stone or hydronephrosis on either side. The aorta is normal in caliber. There is diverticulosis of the colon with no findings of acute diverticulitis. A cystic structure is seen in the left labia possibly representing a Bartholin's gland cyst measuring 2.3 x 1.7 cm. The uterus is surgically absent. No other fluid collection or abscess is seen. There is no free air or free fluid. IMPRESSION: 1. No evidence of an acute intra-abdominal process. 2. Diverticulosis. 3. Bibasilar lung nodules for which CT scan of the chest is recommended in 6 months. Mild areas of infiltrate versus atelectasis in the lower lobes. 4. Small fluid-containing structure, likely a Bartholin's gland cyst in the left labia. Electronically signed by: Darron Vigil MD 07/22/2019 1:15 PM [employer]
[2019-07-22 14:00] VITALS: O2SAT 100
[2019-07-22 14:04] VITALS: BP 140/81; TEMP 97.8
== END 2019-07-22 13:50 | disposition home or self-care (01) ==
LOC: ER 10:45
DX: R10.11 Right upper quadrant pain (principal); R11.2 Nausea with vomiting, unspecified; J45.909 Unspecified asthma, uncomplicated; I51.9 Heart disease, unspecified; I10 Essential (primary) hypertension; Z90.49 Acquired absence of other specified parts of digestive tract; Z90.710 Acquired absence of both cervix and uterus; Z79.899 Other long term (current) drug therapy; Z88.6 Allergy status to analgesic agent; Z88.1 Allergy status to other antibiotic agents; Z88.5 Allergy status to narcotic agent; Z88.0 Allergy status to penicillin; Z87.891 Personal history of nicotine dependence
CPT/HCPCS: 74176; 81001; J0500

== ENCOUNTER 2019-09-12 15:23 | Emergency (ER) | payer MEDICARE, MEDICAID ==
[2019-09-12] MEDS ORDERED: CETIRIZINE HCL 10 MG TAB PO ONE (15:45)
[2019-09-12] MEDS ORDERED: predniSONE 20 MG TAB PO ONE (15:45)
[2019-09-12 15:48] VITALS: TEMP 97.6; O2SAT 100
[2019-09-12] MEDS ORDERED: PROMETHAZINE HCL 25 MG TAB PO ONE (16:36)
--- NOTE | 2019-09-12 16:42 | ED.PDOC ---
History of Present Illness - General Chief Complaint: Headache Stated Complaint: headache Time Seen by Provider: 09/12/19 15:38 Source: patient Exam Limitations: no limitations - History of Present Illness Initial Comments: The patient 54-year-old female presents emergency room secondary to headache and some ear discomfort that started this morning. She does have a mild runny nose. No cough or sore throat. One episode of nausea. No nuchal rigidity. No altered mental status. No focal neurological changes. No chest pain. No diarrhea. No fever at this point. This is not the worst headache of her life. Headache is fairly circumferential. Timing/Duration: 4-6 hours Severity: moderate Improving Factors: nothing Worsening Factors: nothing Associated Symptoms: headaches, loss of appetite, malaise Allergies/Adverse Reactions: Allergies Acetaminophen Allergy (Severe, Verified 07/03/19 14:09) Anaphylaxis Amoxicillin Allergy (Severe, Verified 07/03/19 14:09) Anaphylaxis Hydrocodone Allergy (Severe, Verified 07/03/19 14:09) Anaphylaxis Ibuprofen Allergy (Severe, Verified 07/03/19 14:09) Anaphylaxis Ketorolac Tromethamine [From Toradol] Allergy (Severe, Verified 07/03/19 14:09) Anaphylaxis Naproxen [From Naprosyn] Allergy (Severe, Verified 07/03/19 14:09) Anaphylaxis Penicillins Allergy (Severe, Verified 07/03/19 14:09) Anaphylaxis Tramadol Allergy (Severe, Verified 07/03/19 14:09) Anaphylaxis Home Medications: Ambulatory Orders Lisinopril & Hydrochlorothiazi [Zestoretic 20-12.5 mg] 1 tab PO DAILY 05/13/19 Nitroglycerin [Nitrostat] 0.4 mg SL PRN PRN 05/13/19 Clindamycin HCl [Clindamycin Hydrochloride] 300 mg PO TID #30 cap 07/03/19 Dicyclomine HCl [Bentyl] 20 mg PO Q8H PRN #15 tab 07/22/19 Docusate Sodium [Colace Cap] 100 mg PO BID PRN #20 cap 07/22/19 Polyethylene Glycol 3350 [Miralax] 17 gm PO DAILY 15 Days #238 bottle 07/22/19 Promethazine Tab [Phenergan Tablet] 25 mg PO Q6H PRN #12 tab 07/22/19 Promethazine HCl 25 mg PO Q6H PRN #5 tab 09/12/19 predniSONE [Prednisone] 20 mg PO DAILY #3 tab 09/12/19 Review of Systems - Review of Systems Constitutional: States: malaise EENTM: States: ear pain - Bilateral, nose congestion Respiratory: States: no symptoms reported Cardiology: States: no symptoms reported Gastrointestinal/Abdominal: States: nausea, vomiting - X1 Genitourinary: States: no symptoms reported Musculoskeletal: States: other - Body aches Skin: States: no symptoms reported Neurological: States: headache Endocrine: States: no symptoms reported All other Systems: No Change from Baseline Past Medical History (General) - Patient Medical History Hx Stroke: No Hx Asthma: Yes Hx of COPD: No Hx Cardiac Disorders: Yes Hx Congestive Heart Failure: No Hx Hypertension: Yes Hx Diabetes: No Hx Gastroesophageal Reflux: No Hx Renal Disease: No Hx Cancer: No Surgical History: cholecystectomy, other - Vaccination History Hx Tetanus, Diphtheria Vaccination: Yes Hx Influenza Vaccination: Yes Hx Pneumococcal Vaccination: Yes - Social History Hx Tobacco Use: Yes Hx Alcohol Use: No Hx Substance Use: No Hx Substance Use Treatment: No Hx Depression: No - Female History Patient : No - Hyst Family Medical History - Family History Mother Living Status: Hx Family Hypertension: Yes Hx Cardiac Disease: Yes Hx Family Diabetes: Yes Physical Exam - Physical Exam General Appearance: Alert, Comfortable, No apparent distress Eye Exam: bilateral normal Ears, Nose, Throat: hearing grossly normal - Pressure behind bilateral tympanic membranes., nasal congestion, pharyngeal erythema Neck: full range of motion, supple Respiratory: lungs clear, normal breath sounds, no respiratory distress, no accessory muscle use Cardiovascular/Chest: normal peripheral pulses, regular rate, rhythm, no edema Peripheral Pulses: radial,right: 2+, radial,left: 2+ Gastrointestinal/Abdominal: non tender, soft Rectal Exam: deferred Back Exam: no CVA tenderness, no vertebral tenderness Extremity: normal range of motion, no pedal edema, no calf tenderness, normal capillary refill Neurologic: [employer] II-XII nml as tested, alert, normal mood/affect, oriented x 3 Skin Exam: normal color Comments: Vital Signs - 24 hr 09/12/19 09/12/19 15:36 16:00 Temperature 97.6 F Pulse Rate [ 85 78 left brachial] Respiratory 20 20 Rate Blood Pressure 140/69 116/75 [left brachial] O2 Sat by Pulse 100 100 Oximetry Progress - Progress Progress: 09/12/19 16:41 The patient is a 54-year-old -[place] female presented emergency room secondary to a headache and some ear pain that is likely due to a viral upper respiratory tract infection. Patient needs to keep her self well-hydrated. She is also having a little bit of nausea related to that. The patient was given a dose of prednisone and a dose of Phenergan here. The patient will likely have symptoms for the next 3 to 5 days. She is going to be written for low-dose prednisone for the next 3 days as she cannot take any Motrin or Tylenol type products. She needs to keep her self well-hydrated. She will also be written for a few doses of Phenergan for as needed use to control any further nausea or vomiting. Obviously if symptoms are significantly worsening or changing then she needs to return to the emergency room for further evaluation. The patient should expect her symptoms to last another 3 to 5 days. ER warnings are given. lex [email or web address] [id number] Departure - Departure Clinical Impression: Viral upper respiratory illness Tension type headache Qualifiers: Headache chronicity pattern: acute headache Intractability: not intractable Qualified Code(s): G44.209 - Tension-type headache, unspecified, not intractable Disposition: Discharge to Home or Self Care Condition: Fair Departure Forms: ED Discharge - Pt. Copy, Patient Portal Self Enrollment Instructions: DI for Headache, Cough, Runny Nose, and the Common Cold (DC) Diet: regular diet Activity: increase activity as tolerated Prescriptions: predniSONE [Prednisone] 20 mg PO DAILY #3 tab Promethazine HCl 25 mg PO Q6H PRN #5 tab PRN Reason: Vomiting Home Medications: Ambulatory Orders Lisinopril & Hydrochlorothiazi [Zestoretic 20-12.5 mg] 1 tab PO DAILY 05/13/19 Nitroglycerin [Nitrostat] 0.4 mg SL PRN PRN 05/13/19 Clindamycin HCl [Clindamycin Hydrochloride] 300 mg PO TID #30 cap 07/03/19 Dicyclomine HCl [Bentyl] 20 mg PO Q8H PRN #15 tab 07/22/19 Docusate Sodium [Colace Cap] 100 mg PO BID PRN #20 cap 07/22/19 Polyethylene Glycol 3350 [Miralax] 17 gm PO DAILY 15 Days #238 bottle 07/22/19 Promethazine Tab [Phenergan Tablet] 25 mg PO Q6H PRN #12 tab 07/22/19 Promethazine HCl 25 mg PO Q6H PRN #5 tab 09/12/19 predniSONE [Prednisone] 20 mg PO DAILY #3 tab 09/12/19 Additional Instructions: The patient is a 54-year-old -[place] female presented emergency room secondary to a headache and some ear pain that is likely due to a viral upper respiratory tract infection. Patient needs to keep her self well-hydrated. She is also having a little bit of nausea related to that. The patient was given a dose of prednisone and a dose of Phenergan here. The patient will likely have symptoms for the next 3 to 5 days. She is going to be written for low-dose prednisone for the next 3 days as she cannot take any Motrin or Tylenol type products. She needs to keep her self well-hydrated. She will also be written for a few doses of Phenergan for as needed use to control any further nausea or vomiting. Obviously if symptoms are significantly worsening or changing then she needs to return to the emergency room for further evaluation. The patient should expect her symptoms to last another 3 to 5 days. ER warnings are given.
[2019-09-12 16:54] VITALS: BP 140/83
== END 2019-09-12 16:50 | disposition home or self-care (01) ==
LOC: ER 15:23
DX: G44.209 Tension-type headache, unspecified, not intractable (principal); J06.9 Acute upper respiratory infection, unspecified; J45.909 Unspecified asthma, uncomplicated; I10 Essential (primary) hypertension; I51.9 Heart disease, unspecified; Z87.891 Personal history of nicotine dependence; Z79.899 Other long term (current) drug therapy; Z88.5 Allergy status to narcotic agent; Z88.6 Allergy status to analgesic agent; Z88.0 Allergy status to penicillin
CPT/HCPCS: 87502; J7512; Q0169